=== PATIENT | male | born 1965 | race Two or more races ===

== ENCOUNTER 2020-09-08 21:55 | Inpatient (IN) | payer MEDICAID, OTHER ==
[~2020-09-08] VITALS: Ht 160 cm; Wt 70.5 kg
[2020-09-08] MEDS ORDERED: SODIUM CHLORIDE 0.9% 1,000 ML IVB ONE (22:30)
[2020-09-08 23:14] LABS: Basophils # (auto) 0.1 10 ^3/uL (0-0.2); Basophils % (auto) 0.8 % (0.0-2.0); Eosinophils # (auto) 0.3 10 ^3/uL (0-0.8); Eosinophils % (auto) 3.6 % (0.0-7.0); Hematocrit 43.4 % (41.0-53.0); Hemoglobin 15.4 g/dL (13.5-17.5); Lymphocytes # (auto) 1.4 10 ^3/uL (0.4-5.4); Lymphocytes % (auto) 15.2 % (10.0-50.0); Mean Corpuscular Hemoglobin 34.2 pg (28.0-32.0); Mean Corpuscular Hgb Conc. 35.4 g/dL (32.0-36.0); Mean Corpuscular Volume 96.6 fL (80.0-100.0); Monocytes # (auto) 0.7 10 ^3/uL (0-1.3); Monocytes % (auto) 7.6 % (0.0-12.0); Neutrophils # (auto) 6.6 10 ^3/uL (1.6-8.6); Neutrophils % (auto) 72.8 % (37.0-80.0); Nucleated Red Blood Cells % 0.1 %; Red Blood Cells 4.49 10^6/uL (4.5-5.90); White Blood Cell 9.1 10^3/uL (4.4-10.8)
[2020-09-08 23:26] LABS: Alanine Aminotransferase 38 U/L (16-61); Albumin 3.2 g/dL (3.4-5.0); Anion Gap 5 (5-15); Aspartate Aminotransferase 16 U/L (15-37); BUN/Creatinine Ratio 14.7; Blood Alcohol < 3.0 mg/dL (0-5); Blood Urea Nitrogen 10 mg/dL (7-18); Calcium 8.3 mg/dL (8.5-10.1); Carbon Dioxide 25 mmol/L (21-32); Chloride 108 mmol/L (98-107); GFR African American 157 mL/min; GFR Non-African American 130 mL/min; Glucose 253 mg/dL (74-106); Magnesium 1.7 mg/dL (1.6-2.6); Potassium 3.8 mmol/L (3.5-5.1); Sodium 138 mmol/L (136-145)
[2020-09-08 23:32] LABS: Alkaline Phosphatase 95 U/L (45-117); Bilirubin, Total 0.7 mg/dL (0.2-1.0); Total Protein 6.3 g/dL (6.4-8.2)
[2020-09-08 23:41] LABS: INR 1.13 (0.9-1.15); Partial Thromboplastin Time 25.3 sec (23.0-31.2)
[2020-09-09] MEDS ORDERED: SODIUM CHLORIDE 0.9% 2,000 ML IV ONE (00:45)
[2020-09-09 02:50] LABS: Urine Bacteria NONE SEEN /hpf (None Seen); Urine Blood 3+ /uL (Negative); Urine Specific Gravity 1.009 (1.001-1.035); Urine WBC 1 /hpf (0 - 3)
[2020-09-09 02:57] LABS: Alcohol, Urine < 3.0 mg/dL (0-10); Amphetamine Screen, Urine NEGATIVE (NEGATIVE); Barbiturate Scree,Urine NEGATIVE (NEGATIVE); Benzodiazephine Screen, Urine NEGATIVE (NEGATIVE); Cannabinoid Screen, Urine POSITIVE (NEGATIVE); Cocaine Screen, Urine NEGATIVE (NEGATIVE); Opiate Scree,Urine NEGATIVE (NEGATIVE); Phencyclidine Screen, Urine NEGATIVE (NEGATIVE)
[2020-09-09] MEDS ORDERED: NITROGLYCERIN 0.4 MG SL TAB SL PRN ×2 (14:30→22:30)
[2020-09-09] MEDS ORDERED: MORPHINE SULFATE INJECTION 2 MG/ML SYRG IV PRN ×3 (14:30→22:30)
[2020-09-09] MEDS ORDERED: ARIP400I IM (17:10)
[2020-09-09] MEDS ORDERED: METF-929 PO (17:12)
[2020-09-09 20:36] VITALS: BP 152/92
[2020-09-09 21:01] VITALS: BP 131/80
[2020-09-09 22:01] VITALS: BP 114/60
[2020-09-09] MEDS ORDERED: DEXTROSE (50%) 50ML SYRG IV PRN (22:30)
[2020-09-09] MEDS ORDERED: LORazepam 0.5 MG TAB PO PRN (22:30)
[2020-09-09] MEDS ORDERED: HYDROcodone-ACET 5/325MG TAB PO PRN (22:30)
[2020-09-09] MEDS ORDERED: CLINDAMYCIN 600MG IV 50 ML IV ONE (22:30)
[2020-09-09] MEDS ORDERED: PNEUMOCOCCAL VACC POLYS 25 MCG/0.5 ML VIAL IM ONE (22:30)
[2020-09-09] MEDS ORDERED: ACETAMINOPHEN 325 MG TAB PO PRN (22:30)
[2020-09-09] MEDS ORDERED: cefTRIAXone 1GM/50ML D5W 50 ML IV ONE (22:30)
[2020-09-09 23:00] VITALS: BP 122/84
[2020-09-09] MEDS ORDERED: hydrALAZINE HCL 20 MG/ML VL IV PRN (23:15)
[2020-09-09] MEDS ORDERED: LORazepam 2MG/ML-1ML VIAL IV PRN (23:15)
[2020-09-09] MEDS: SODIUM CHLORIDE 0.9% 1,000 ML IV SCH (23:53)
[2020-09-10] VITALS (11 sets, daily range): BP systolic 105–137; BP diastolic 40–92
[2020-09-10 05:57] LABS: Basophils # (auto) 0.1 10 ^3/uL (0-0.2); Eosinophils # (auto) 0.3 10 ^3/uL (0-0.8); Eosinophils % (auto) 3.2 % (0.0-7.0); Hematocrit 44.8 % (41.0-53.0); Hemoglobin 15.9 g/dL (13.5-17.5); Lymphocytes # (auto) 1.7 10 ^3/uL (0.4-5.4); Lymphocytes % (auto) 18.2 % (10.0-50.0); Mean Corpuscular Hemoglobin 34.3 pg (28.0-32.0); Mean Corpuscular Hgb Conc. 35.4 g/dL (32.0-36.0); Mean Corpuscular Volume 96.9 fL (80.0-100.0); Monocytes % (auto) 10.5 % (0.0-12.0); Neutrophils # (auto) 6.3 10 ^3/uL (1.6-8.6); Neutrophils % (auto) 67.1 % (37.0-80.0); Red Blood Cells 4.62 10^6/uL (4.5-5.90); White Blood Cell 9.3 10^3/uL (4.4-10.8)
[2020-09-10 06:13] LABS: INR 1.14 (0.9-1.15); Partial Thromboplastin Time 26.9 sec (23.0-31.2)
[2020-09-10 06:15] LABS: Chloride 106 mmol/L (98-107); Potassium 3.6 mmol/L (3.5-5.1); Sodium 141 mmol/L (136-145)
[2020-09-10] MEDS: CLINDAMYCIN 600MG IV 50 ML IV SCH ×2 (06:22→13:31)
[2020-09-10] MEDS: InsuLIN REG 1unit/0.01ml Soln (100units/ml) SC SCH ×4 (06:22→22:00)
[2020-09-10] MEDS: ACCU-CHEK COMFORT CURVE STRIP VI SCH ×4 (06:28→23:32)
[2020-09-10 06:44] LABS: Alanine Aminotransferase 36 U/L (16-61); Albumin 2.9 g/dL (3.4-5.0); Alkaline Phosphatase 101 U/L (45-117); Anion Gap 8 (5-15); Aspartate Aminotransferase 17 U/L (15-37); Bilirubin, Total 1.3 mg/dL (0.2-1.0); Blood Urea Nitrogen 8 mg/dL (7-18); Calcium 8.4 mg/dL (8.5-10.1); Carbon Dioxide 27 mmol/L (21-32); Cholesterol 138 mg/dL (< 200); GFR African American 130 mL/min; GFR Non-African American 107 mL/min; Glucose 189 mg/dL (74-106); HDL Cholesterol 31 mg/dL (40-59); LDL Cholesterol 91 mg/dL (< 100); Magnesium 2.1 mg/dL (1.6-2.6); Phosphorus 3.3 mg/dL (2.5-4.90); Total Protein 6.2 g/dL (6.4-8.2); Triglycerides 126 mg/dL (< 150); Uric Acid 3.6 mg/dL (3.5-7.2)
[2020-09-10] MEDS: cefTRIAXone 1GM/50ML D5W 50 ML IV SCH (09:08)
[2020-09-10] MEDS: ENOXAPARIN SOD 40 MG/0.4 ML SYRINGE SC SCH (09:51)
[2020-09-10 10:24] LABS: Urine Bacteria NONE SEEN /hpf (None Seen); Urine Blood 2+ /uL (Negative); Urine Mucus FEW (None Seen); Urine Specific Gravity 1.017 (1.001-1.035); Urine WBC 3 /hpf (0 - 3)
[2020-09-10 10:39] LABS: Alcohol, Urine < 3.0 mg/dL (0-10); Amphetamine Screen, Urine NEGATIVE (NEGATIVE); Barbiturate Scree,Urine NEGATIVE (NEGATIVE); Benzodiazephine Screen, Urine NEGATIVE (NEGATIVE); Cannabinoid Screen, Urine POSITIVE (NEGATIVE); Cocaine Screen, Urine NEGATIVE (NEGATIVE); Phencyclidine Screen, Urine NEGATIVE (NEGATIVE)
[2020-09-10 10:53] LABS: Opiate Scree,Urine NEGATIVE (NEGATIVE)
[2020-09-10] MEDS: SODIUM CHLORIDE 0.9% 1,000 ML IV SCH (15:10)
[2020-09-10] MEDS ORDERED: LORazepam 2MG/ML-1ML VIAL IV PRN (17:00)
[2020-09-10] MEDS: FAMOTIDINE (10MG/ML) 2ML VL IV SCH (21:47)
[2020-09-11] VITALS (8 sets, daily range): BP systolic 51–128; BP diastolic 40–82
[2020-09-11 04:04] LABS: BUN/Creatinine Ratio 13.4; Calcium 8.4 mg/dL (8.5-10.1); Magnesium 1.8 mg/dL (1.6-2.6); Potassium 3.9 mmol/L (3.5-5.1)
[2020-09-11] MEDS: ACCU-CHEK COMFORT CURVE STRIP VI SCH ×4 (06:04→21:49)
[2020-09-11] MEDS: InsuLIN REG 1unit/0.01ml Soln (100units/ml) SC SCH ×4 (06:04→21:49)
[2020-09-11] MEDS: SODIUM CHLORIDE 0.9% 1,000 ML IV SCH (07:50)
[2020-09-11] MEDS: FAMOTIDINE (10MG/ML) 2ML VL IV SCH ×2 (09:27→21:49)
[2020-09-11] MEDS: cefTRIAXone 1GM/50ML D5W 50 ML IV SCH (09:28)
[2020-09-11] MEDS: ENOXAPARIN SOD 40 MG/0.4 ML SYRINGE SC SCH (09:28)
[2020-09-11] MEDS: FOLIC ACID 1 MG, MULTIPLE VITAMIN 10 ML, MAGNESIUM SULF SDV 50% 8 MEQ, THIAMINE INJ 100... INJ SCH ×5 (13:24)
[2020-09-12] MEDS: SODIUM CHLORIDE 0.9% 1,000 ML IV SCH (01:45)
[2020-09-12 04:00] VITALS: BP 124/88
[2020-09-12 06:12] LABS: Magnesium 1.8 mg/dL (1.6-2.6); Potassium 3.9 mmol/L (3.5-5.1)
[2020-09-12] MEDS: InsuLIN REG 1unit/0.01ml Soln (100units/ml) SC SCH ×4 (06:40→21:31)
[2020-09-12] MEDS: ACCU-CHEK COMFORT CURVE STRIP VI SCH ×4 (06:40→21:30)
[2020-09-12] MEDS: cefTRIAXone 1GM/50ML D5W 50 ML IV SCH (08:37)
[2020-09-12] MEDS: ENOXAPARIN SOD 40 MG/0.4 ML SYRINGE SC SCH (08:37)
[2020-09-12] MEDS: FAMOTIDINE (10MG/ML) 2ML VL IV SCH ×2 (08:37→21:30)
[2020-09-12 08:43] VITALS: BP 126/76
[2020-09-12 13:00] VITALS: BP 127/82
[2020-09-12] MEDS ORDERED: MAGNESIUM SULFATE 1GM/100ML 100 ML IV ONE (14:15)
[2020-09-12] MEDS: FOLIC ACID 1 MG, MULTIPLE VITAMIN 10 ML, MAGNESIUM SULF SDV 50% 8 MEQ, THIAMINE INJ 100... INJ SCH ×5 (15:52)
[2020-09-12 17:00] VITALS: BP 120/78
[2020-09-12] MEDS: D5W/SOD CHLO 0.9% 1,000 ML IV SCH (17:10)
[2020-09-12 22:00] VITALS: BP 146/86
[2020-09-13 05:00] VITALS: BP 146/73
[2020-09-13] MEDS: InsuLIN REG 1unit/0.01ml Soln (100units/ml) SC SCH ×3 (07:00→17:00)
[2020-09-13] MEDS: ACCU-CHEK COMFORT CURVE STRIP VI SCH ×4 (07:05→23:37)
[2020-09-13] MEDS: D5W/SOD CHLO 0.9% 1,000 ML IV SCH ×2 (07:06→09:42)
[2020-09-13 09:00] VITALS: BP 159/84
[2020-09-13] MEDS: FAMOTIDINE (10MG/ML) 2ML VL IV SCH ×2 (09:40→23:37)
[2020-09-13] MEDS: ENOXAPARIN SOD 40 MG/0.4 ML SYRINGE SC SCH (09:41)
[2020-09-13] MEDS: FOLIC ACID 1 MG, MULTIPLE VITAMIN 10 ML, MAGNESIUM SULF SDV 50% 8 MEQ, THIAMINE INJ 100... INJ SCH ×5 (12:13)
[2020-09-13 13:00] VITALS: BP 130/84
[2020-09-13] MEDS ORDERED: ASPirin-EC 81 mg tab PO ONE (13:30)
[2020-09-13 17:19] VITALS: BP 166/83
[2020-09-13 17:58] VITALS: BP 160/89
[2020-09-13 22:00] VITALS: BP 133/96
[2020-09-13] MEDS ORDERED: ATORVASTATIN 20 MG TAB PO SCH (22:00)
[2020-09-13] MEDS: SODIUM CHLORIDE 0.9% 1,000 ML IV SCH (23:38)
[2020-09-14] MEDS: InsuLIN REG 1unit/0.01ml Soln (100units/ml) SC SCH ×4 (00:05→16:55)
[2020-09-14 04:23] VITALS: BP 145/78
[2020-09-14 05:45] LABS: Calcium 8.2 mg/dL (8.5-10.1); Magnesium 2.1 mg/dL (1.6-2.6); Potassium 3.3 mmol/L (3.5-5.1)
[2020-09-14 05:48] LABS: BUN/Creatinine Ratio 8.6
[2020-09-14] MEDS: SODIUM CHLORIDE 0.9% 1,000 ML IV SCH ×5 (06:02→12:57)
[2020-09-14 06:09] LABS: Folate (Folic Acid) > 24.00 ng/mL (5.38-24)
[2020-09-14] MEDS: ACCU-CHEK COMFORT CURVE STRIP VI SCH ×3 (07:10→16:55)
[2020-09-14 09:00] VITALS: BP 145/83
[2020-09-14] MEDS ORDERED: ASPirin-EC 81 mg tab PO SCH (10:00)
[2020-09-14] MEDS: FAMOTIDINE (10MG/ML) 2ML VL IV SCH (10:28)
[2020-09-14] MEDS: ENOXAPARIN SOD 40 MG/0.4 ML SYRINGE SC SCH (10:29)
[2020-09-14] MEDS ORDERED: POTASSIUM EFFERVESENT TAB 25 MEQ PO ONE (11:15)
[2020-09-14 13:00] VITALS: BP 149/82
[2020-09-14] MEDS: FOLIC ACID 1 MG, MULTIPLE VITAMIN 10 ML, MAGNESIUM SULF SDV 50% 8 MEQ, THIAMINE INJ 100... INJ SCH ×5 (13:13)
[2020-09-14] MEDS ORDERED: IOHEXOL 350 MG/ML 100ML IJ ONE (13:27)
[2020-09-14 17:00] VITALS: BP 146/80
== END 2020-09-14 20:40 | disposition short-term general hospital (02) | DRG 133 ==
LOC: EDBD 21:55 → ER 21:55 → DOU IN ICU 09-09 13:30 → ER 09-09 13:30 → TELE 09-09 14:21 → DOU IN ICU 09-09 20:52 → TELE-WESTW 09-11 14:17
PROVIDERS: ADMIT Hospitalist; ATTEND Internal Medicine
DX: J96.01 Acute respiratory failure with hypoxia (principal); I63.539 Cerebral infarction due to unspecified occlusion or stenosis of unspecified posterior cerebral artery; G92 Toxic encephalopathy; E78.5 Hyperlipidemia, unspecified; E66.9 Obesity, unspecified; F10.20 Alcohol dependence, uncomplicated; F12.90 Cannabis use, unspecified, uncomplicated; F15.90 Other stimulant use, unspecified, uncomplicated; Y90.0 Blood alcohol level of less than 20 mg/100 ml; Z20.822 Contact with and (suspected) exposure to COVID-19; E87.6 Hypokalemia; F31.9 Bipolar disorder, unspecified; F91.9 Conduct disorder, unspecified; Z68.29 Body mass index [BMI] 29.0-29.9, adult; Z83.3 Family history of diabetes mellitus; Z59.0 Homelessness
CPT/HCPCS: 36415; 36600; 51702; 70450; 70496; 70498; 70551; 71045; 76775; 80048; 80053; 80061; 80307; 80320; 81001; 82306; 82607; 82728; 82746; 82805; 82962; 83036; 83605; 83735; 83880; 84100; 84132; 84436; 84443; 84481; 84484; 84550; 85025; 85610; 85730; 87040; 87081; 87086; 87426; 92610; 93005; 93306; 93886; 95819; 96360; 96361; 97110; 97116; 97530; G0378; J0696; J1815; J3490; J7042